=== PATIENT | female | born 1960 | race Caucasian/White ===

== ENCOUNTER 2017-07-17 22:35 | Emergency (ER) | payer OTHER, MEDICARE ==
[2017-07-17 22:43] VITALS: BP 141/73; PULSE 74; TEMP 97.7; BMI 28.2
--- NOTE | 2017-07-17 23:09 | PDOC ---
History of Present Illness - General Chief Complaint: Ear Problem Stated Complaint: EAR PROBLEM/SORE THROAT Time Seen by Provider: 07/17/17 22:47 History Source: Patient Exam Limitations: No Limitations - History of Present Illness Initial Comments: 07/17/17 23:42 57-year-old female presents to the emergency department complaining of a sore throat and right ear pressure but denies any dental pain. Patient states she is on clindamycin for the past 10 days for a dental procedure. Pain is described as 5/10 sore nonradiating intermittent discomfort. The pain is alleviated with Motrin and Tylenol and there are no exacerbating factors. Patient denies fever, chills, difficulty swallowing, facial pain, neck pain, back pains, chest pain, shortness. Timing/Duration: 24 hours Associated Symptoms: denies: nausea/vomiting Past History - Past Medical History Allergies/Adverse Reactions: Allergies Allergy/AdvReac Type Severity Reaction Status Date / Time sulfamethoxazole Allergy Severe Difficulty Verified 07/17/17 22:38 [From Bactrim] Breathing trimethoprim [From Bactrim] Allergy Severe Difficulty Verified 07/17/17 22:38 Breathing codeine [Codeine] Allergy Vomiting Verified 07/17/17 22:38 erythromycin base Allergy Verified 07/17/17 22:38 [Erythromycin Base] levofloxacin [From Levaquin] Allergy Verified 07/17/17 22:38 Penicillins Allergy Verified 07/17/17 22:38 Sulfa (Sulfonamide Allergy Verified 07/17/17 22:38 Antibiotics) [Sulfa(Sulfonamide Antibiotics)] Home Medications: Ambulatory Orders Esomeprazole Mag Trihydrate [Nexium] 40 mg PO DAILY 05/27/12 Paroxetine HCl [Paxil -] 5 mg PO DAILY 05/27/12 Tiotropium [place] [Spiriva] 1 inh IH DAILY 05/27/12 Albuterol 0.083% Nebulizer Doris [Ventolin 0.083% Nebulizer Soln -] 1 neb NEB Q4H PRN 11/11/12 Levothyroxine [Synthroid -] 88 mcg PO DAILY 11/11/12 Potassium Chloride 10 meq PO DAILY #1 capsule.er 10/17/15 Asthma: Yes COPD: Yes HTN: Yes Hypercholesterolemia: Yes Psychiatric Problems: Yes Thyroid Disease: Yes (HASHIMOTOS) Other medical history: spinal disease, sjogren's syndrome - Suicide/Smoking/Psychosocial Hx Smoking Status: Yes Smoking History: Never smoked Have you smoked in the past 12 months: No Number of Cigarettes Smoked Daily: 0 If you are a former smoker, when did you quit?: 2010 Information on smoking cessation initiated: No Hx Alcohol Use: No Drug/Substance Use Hx: No Substance Use Type: None Hx Substance Use Treatment: No Review of Systems - Review of Systems Able to Perform ROS?: Yes Comments:: 07/17/17 23:41 CONSTITUTIONAL: Absent: fever, chills, diaphoresis, generalized weakness, malaise, loss of appetite HEENT: +throat pain Absent: rhinorrhea, nasal congestion, throat swelling, difficulty swallowing, mouth swelling, ear pain, eye pain, visual Changes CARDIOVASCULAR: Absent: chest pain, loss of consciousness, palpitations, irregular heart rate, peripheral edema RESPIRATORY: Absent: cough, shortness of breath, dyspnea with exertion, orthopnea, wheezing, stridor, hemoptysis GASTROINTESTINAL: Absent: abdominal pain, abdominal distension, nausea, vomiting, diarrhea, constipation, melena, hematochezia GENITOURINARY: Absent: dysuria, frequency, urgency, hesitancy, hematuria, flank pain, genital pain MUSCULOSKELETAL: Absent: myalgia, arthralgia, joint swelling SKIN: Absent: rash, itching, pallor Is the patient limited Hungarian proficient: No *Physical Exam - Vital Signs Last Vital Signs Temp Pulse Resp BP Pulse Ox 97.7 F 74 18 141/73 99 07/17/17 22:38 07/17/17 22:38 07/17/17 22:38 07/17/17 22:38 07/17/17 22:38 - Physical Exam Comments: 07/17/17 23:42 GENERAL: Well developed, well nourished. Awake and alert. No acute distress. HEENT: Normocephalic, atraumatic. PERRLA, EOMI. No conjunctival pallor. Sclera are non- icteric. Moist mucous membranes. Oropharynx is clear. NECK: Supple. Full ROM. No JVD. Carotid pulses 2+ and symmetric, without bruits. No thyromegaly. No lymphadenopathy. CARDIOVASCULAR: Regular rate and rhythm. No murmurs, rubs, or gallops. Distal pulses are 2+ and symmetric. PULMONARY: No evidence of respiratory distress. Lungs clear to auscultation bilaterally. No wheezing, rales or rhonchi. ABDOMINAL: Soft. Non-tender. Non-distended. No rebound or guarding. No organomegaly. Normoactive bowel sounds. MUSCULOSKELETAL Normal range of motion at all joints. No bony deformities or tenderness. No CVA tenderness. EXTREMITIES: No cyanosis. No clubbing. No edema. No calf tenderness. SKIN: Warm and dry. Normal capillary refill. No rashes. No jaundice. NEUROLOGICAL: Alert, awake, appropriate. Cranial nerves 2-12 intact. No deficits to light touch and temperature in face, upper extremities and lower extremities. No motor deficits in the in face, upper extremities and lower extremities. Normoreflexic in the upper and lower extremities. Normal speech. Toes are down- going bilaterally. Gait is normal without ataxia. PSYCHIATRIC: Cooperative. Good eye contact. Appropriate mood and affect. *DC/Admit/Observation/Transfer Diagnosis at time of Disposition: Pharyngitis Qualifiers: Pharyngitis/tonsillitis etiology: unspecified etiology Qualified Code(s): J02.9 - Acute pharyngitis, unspecified - Discharge Dispostion Disposition: HOME Condition at time of disposition: Stable Admit: No - Referrals Referrals: Yogesh Mazariegos MD [Staff Physician] - - Patient Instructions Printed Discharge Instructions: DI for Viral Pharyngitis Additional Instructions: INcrease fluids Follow up with your physician and the ENT /Dr. Mazariegos listed on your discharge Tylenol or MOtrin as needed for pain Return to the ER for severe/persistent/worsening symptoms - Post Discharge Activity
== END 2017-07-17 23:51 | disposition home or self-care (01) ==
LOC: JERFT 22:35
DX: J02.9 Acute pharyngitis, unspecified (principal)
CPT/HCPCS: 87070; 87430; 99281-25

== ENCOUNTER 2019-07-24 20:22 | Observation (INO) | payer OTHER, MEDICARE ==
[2019-07-24 20:58] VITALS: BMI 28.2
--- NOTE | 2019-07-24 21:04 | PDOC ---
Attending Attestation - Resident Resident Name: Murray Gil - ED Attending Attestation I have performed the following: I have examined & evaluated the patient, The case was reviewed & discussed with the resident, I agree w/resident's findings & plan - HPI HPI: 07/24/19 21:10 see resident hpi - Physicial Exam PE: 07/24/19 21:10 agree with resident exam - Medical Decision Making 07/24/19 21:10 59-year-old female with an episode of nausea and "fogginess " This occurred while driving home from the gym Patient states she did feel well while at the gym and the symptoms started afterwards She still feels a little bit unclear Neuro exam is nonfocal Plan for presyncope evaluation and observation
--- NOTE | 2019-07-24 21:17 | PDOC ---
History of Present Illness - General Chief Complaint: Lightheaded Stated Complaint: DIZZY, FALL Time Seen by Provider: 07/24/19 21:02 History Source: Patient Exam Limitations: No Limitations - History of Present Illness Initial Comments: Melanie Barragan is a 59 yo F w a hx of significant past medical history of Asthma, hashimotos thyroiditis, HTN, DJD 'whole spine", and ovarian cyst who presents to the [facility] er [facility] with lightheadedness. She states that earlier today as she was getting out of the car she began feeling extremely lightheaded like she was going to faint. She has been persistently lightheaded and dizzy ever since. She does not feel steady on her feet and says both her arms and legs feel extremely weak. When she got out of her car she started walking to the house and felt like she was going to fall but did not actually fall down, did not hit her head, and did not experience any other trauma. She states she was being worked up for vitamin abnormalities as an outpatient with her PCP Dr. Amanda Lopez and was set to get more labs done later this week. Patient denies having experienced unilateral weakness, word slurring, facial droop, chest pain, SOB, difficulty breathing, leg sweling. Allergies: Bactrim, codeine, erythromycin, levofloxacin, penicillins PMH: hashimotos thyroiditis, HTN, Asthma, DJD 'whole spine", ovarian cyst PSH: ovarian cyst surgery Social: On disability, denies tobacco, alcohol Famhx: Dad- CAD, lymphoma. Mom- Ovarian ca PCP- amanda Lopez Neuro- Dr Ligia Calixto- [place] Past History - Past Medical History Allergies/Adverse Reactions: Allergies Allergy/AdvReac Type Severity Reaction Status Date / Time sulfamethoxazole Allergy Severe Difficulty Verified 07/24/19 20:58 [From Bactrim] Breathing trimethoprim [From Bactrim] Allergy Severe Difficulty Verified 07/24/19 20:58 Breathing codeine [Codeine] Allergy Vomiting Verified 07/24/19 20:58 erythromycin base Allergy Verified 07/24/19 20:58 [Erythromycin Base] levofloxacin [From Levaquin] Allergy Verified 07/24/19 20:58 Penicillins Allergy Verified 07/24/19 20:58 Sulfa (Sulfonamide Allergy Verified 07/24/19 20:58 Antibiotics) [Sulfa(Sulfonamide Antibiotics)] Home Medications: Ambulatory Orders Esomeprazole Mag Trihydrate [Nexium] 40 mg PO DAILY 05/27/12 Paroxetine HCl [Paxil -] 5 mg PO DAILY 05/27/12 Tiotropium [place] [Spiriva] 1 inh IH DAILY 05/27/12 Albuterol 0.083% Nebulizer Doris [Ventolin 0.083% Nebulizer Soln -] 1 neb NEB Q4H PRN 11/11/12 Levothyroxine [Synthroid -] 88 mcg PO DAILY 11/11/12 Potassium Chloride 10 meq PO DAILY #1 capsule.er 10/17/15 Asthma: Yes COPD: Yes HTN: Yes Hypercholesterolemia: Yes Psychiatric Problems: Yes Thyroid Disease: Yes (HASHIMOTOS) - Psycho Social/Smoking Cessation Hx Smoking Status: Yes Smoking History: Never smoked Have you smoked in the past 12 months: No Number of Cigarettes Smoked Daily: 0 If you are a former smoker, when did you quit?: 2010 Hx Alcohol Use: No Drug/Substance Use Hx: No Substance Use Type: None Hx Substance Use Treatment: No Review of Systems - Review of Systems Able to Perform ROS?: Yes Comments:: CONSTITUTIONAL: Present: Fatigue Absent: fever, no chills EYES: Absent: visual changes ENT: Absent: ear pain, no sore throat CARDIOVASCULAR: Absent: chest pain, no palpitations RESPIRATORY: Absent: cough, no SOB GI: Absent: abdominal pain, no nausea, no vomiting, no constipation, no diarrhea GENITOURINARY: Absent: dysuria, no frequency, no hematuria MUSKULOSKELETAL: Absent: back pain, no arthralgia, no myalgia SKIN: Absent: rash NEURO: Absent: headache *Physical Exam - Vital Signs Last Vital Signs Temp Pulse Resp BP Pulse Ox 97.9 F 70 16 140/74 99 07/24/19 20:56 07/24/19 20:56 07/24/19 20:56 07/24/19 20:56 07/24/19 20:56 - Physical Exam GENERAL: Slow. Well-appearing, well-nourished. No apparent distress. HEENT: Normocephalic, atraumatic. PERRL, EOM intact. CARDIOVASCULAR: Normal S1, S2. Regular rate and rhythm. PULMONARY: No evidence of respiratory distress. Lungs clear to auscultation bilaterally. No wheezing, rales or rhonchi. ABDOMEN: Soft, non-distended, non-tender. EXTREMITIES: Normal ROM in all four extremities. No gross deformities. SKIN: Warm, dry. No rash NEUROLOGICAL: Alert, awake, appropriate. Cranial nerves 2-12 intact. No deficits to light touch in face, upper extremities and lower extremities. No motor deficits in the in face, upper extremities and lower extremities. Normal speech. Gait is normal without ataxia. Heart Score/ECG Review - ECG Intrepretation Rhythm: Regular Rhythm - [place]: Normal - P and OK Prominent R with upright T in V1 (true posterior IN): No Delta Wave(s) Present: No WPW: No - QRS Poor R Wave Progression: No Q Wave Present: No Comment:: 94 ms - ST and T Early Repolarization: No Non Specific ST-T Wave changes: No Flattened T Waves: No Prolonged Q-T Interval: No Comment:: QTc 477 - ECG Impressions Normal ECG: Yes Non-specific ST Elevation: No Ischemic Changes: No Torsades naatly Pointes: No WPW: No ED Treatment Course - LABORATORY CBC & Chemistry Diagram: 07/24/19 22:20 07/24/19 22:20 Medical Decision Making - Medical Decision Making Melanie Barragan is a 59 yo F w a hx of significant past medical history of Asthma, hashimotos thyroiditis, HTN, DJD 'whole spine", and ovarian cyst who presents to the [facility] er [facility] with lightheadedness. She states that earlier today as she was getting out of the car she began feeling extremely lightheaded like she was going to faint. She has been persistently lightheaded and dizzy ever since. She does not feel steady on her feet and says both her arms and legs feel extremely weak. When she got out of her car she started walking to the house and felt like she was going to fall but did not actually fall down, did not hit her head, and did not experience any other trauma. She states she was being worked up for vitamin abnormalities as an outpatient with her PCP Dr. Amanda Lopez and was set to get more labs done later this week. Patient denies having experienced unilateral weakness, word slurring, facial droop, chest pain, SOB, difficulty breathing, leg sweling. Vital Signs Temp Pulse Resp BP Pulse Ox 97.9 F 70 16 140/74 99 07/24/19 20:56 07/24/19 20:56 07/24/19 20:56 07/24/19 20:56 07/24/19 20:56 DDx IBNLT: ACS/IN, Arrhythmia, CVA/TIA, electrolyte/metabolc disturbance, vitamin deficiency, anemia, heart failure Plan: Labs, EKG, CXR, Head CT, IV hydration, admit for lightheadedness EKG: NS - see EKG section, no signs of arrhythmia Labs: Mildly decreased potassium - will replete orally CXR: Unremarkable Head CT: EXAM: HEAD CT WITHOUT CONTRAST HISTORY: Headache. Altered mental status COMPARISON: None. FINDINGS: There is no intra or extra-axial hemorrhage. No mass lesion or midline shift. Normal carey white matter differentiation. There is mild cortical atrophy with mild prominence of the frontal extra-axial CSF spaces secondary to volume loss The ventricles are not enlarged and are symmetric and midline in position. The calvarium is intact The visualized paranasal sinuses and mastoid air cells are clear. Disposition: Tele obs for lightheadedness Discharge - Discharge Information Problems reviewed: Yes Clinical Impression/Diagnosis: Lightheadedness Condition: Stable - Admission Yes - Follow up/Referral - Patient Discharge Instructions - Post Discharge Activity
[2019-07-24] MEDS ORDERED: SODIUM CHLORIDE 1,000 ML IV ONE (21:30)
[2019-07-24 22:31] LABS: BASO % 0.6 % (0-2.0); EOS % 0.3 % (0-4.5); HEMATOCRIT 37.2 % (32.4-45.2); HEMOGLOBIN 12.4 GM/dL (10.7-15.3); LYMPH % 25.5 % (8-40); MCH 27.1 pg (25.7-33.7); MCHC 33.3 g/dl (32.0-36.0); MEAN CELL VOLUME 81.4 fl (80-96); MEAN PLT VOLUME 8.6 fl (7.5-11.1); MONO % 4.5 % (3.8-10.2); NEUT % 69.1 % (42.8-82.8); PLATELET COUNT 203 K/MM3 (134-434); RBC 4.57 M/mm3 (3.60-5.2); RDW 14.7 % (11.6-15.6); WHITE BLOOD COUNT 7.6 K/mm3 (4.0-10.0)
[2019-07-24 22:58] LABS: ALBUMIN 3.8 g/dl (3.4-5.0); BILIRUBIN,TOTAL 0.4 mg/dL (0.2-1); BLOOD UREA NITROGEN 17.5 mg/dL (7-18); CALCIUM 9.6 mg/dL (8.5-10.1); CREATININE 0.6 mg/dL (0.55-1.3); POTASSIUM 3.3 mmol/L (3.5-5.1); TOT PROT 7.3 g/dl (6.4-8.2)
[2019-07-24 23:22] LABS: N-TERMINAL BNP 32.8 pg/ml (5-125); PHOSPHOROUS 3.5 mg/dL (2.5-4.9)
[2019-07-24 23:55] LABS: INR 0.93 (0.83-1.09)
[2019-07-24 23:58] LABS: ACTIVATED PTT 26.1 SECONDS (25.2-36.5)
[2019-07-25] MEDS ORDERED: POTASSIUM CHLORIDE ORAL LIQUID 20 MEQ/15 ML PO ONE
[2019-07-25] MEDS ORDERED: POTASSIUM CHLORIDE ORAL LIQUID 20 MEQ/15 ML ONE (02:01)
--- NOTE | 2019-07-25 02:08 | PN ---
Teaching Attending Note Name of Resident: Reva Padilla ATTENDING PHYSICIAN STATEMENT I saw and evaluated the patient. I reviewed the resident's note and discussed the case with the resident. I agree with the resident's findings and plan as documented. SUBJECTIVE: OBJECTIVE: HEENT: No Jaundice, eye redness or discharge, PERRLA, EOMI. Normocephalic, atraumatic. External ears are normal and hearing is grossly intact. No nasal discharge. Neck: Supple, nontender. No palpable adenopathy or thyromegaly. No JVD Chest: Good effort. Clear to auscultation and percussion. Heart: Regular. No S3, rub or murmur Abdomen: Not distended, soft, nontender and no HSM. No rebound or guarding. Normal bowel sounds. Ext: Peripheral pulses intact. No leg edema. Skin: Warm and dry. No petechiae, rash or ecchymosis. Neuro: Alert. Oriented x3. CN 2-12 grossly intact. Sensation grossly intact in all four extremities and DTR are symmetric. Psych: Appropriate mood and affect. Good insight. Will continue comprehensive care for all of patients comorbid conditions. Hypoalbuminemia - Possibly due to combined effects of malnutrition and inflammation associated with comorbid chronic conditions. Will ensure adequate dietary protein intake and also consult professor of literacy. DM For now, we will hold the home diabetes drugs and implement sliding scale insulin regimen. Provide comprehensive diabetes care with patient teaching and counseling about the importance of adherence to prescribed diabetes regimen, euglycemia, eye care and foot care. Tobacco Use Counseled on risks associated with tobacco use. We will provide patient all the necessary assistance to facilitate smoking cessation and prescribe Nicotine patch. CKD/BERTRAND - Will consult nephrology and avoid nephrotoxic agents such as NSAIDS, aminoglycosides, contrast dyes and certain Alternative medicine products. Anemia -Do basic anemia work up including serial stool guaiacs, reticulocyte count and iron studies. Would benefit from Procrit therapy once iron replete. Polypharmacy - Will liaise with patient's PCP to discontinue medications that are not absolutely essential. Obesity Counseled on the risks associated with obesity. Will provide patient all the necessary assistance, counseling and positive reinforcement to facilitate weight loss. Consult professor of literacy. Alcohol abuse - Implement [facility] alcohol withdrawal protocol and do neurochecks. Implement seizure, fall and aspiration precautions. Treat with thiamine and folic acid and monitor electrolytes (Ca,Mg,K,P). Counseled patient about abstaining from alcohol. Will consult urban redevelopment specialist and refer to alcohol detox upon discharge. Hypertension - Restart suitable outpatient antihypertensive drugs when clinically appropriate. Revise regimen to ensure [id number] excellent BP control and career placement services counselor patient on the injurious effects of uncontrolled hypertension. Nonpharmacologic measures to control hypertension like weight loss , salt restriction and exercise discussed. Importance of adherence to treatment regimen and attainment of normotension emphasized. DVT prophylaxis - Lovenox 40 mg SQ q 24 hours. Heparin 5000u sq tid. Advance directives - Full code ASSESSMENT AND PLAN:
--- NOTE | 2019-07-25 08:20 | HP ---
CHIEF COMPLAINT: PCP: HISTORY OF PRESENT ILLNESS: ER course was notable for: (1) (2) (3) Recent Travel: PAST MEDICAL HISTORY: PAST SURGICAL HISTORY: Social History: Smoking: Alcohol: Drugs: Allergies sulfamethoxazole [From Bactrim] Allergy (Severe, Verified 07/24/19 20:58) Difficulty Breathing trimethoprim [From Bactrim] Allergy (Severe, Verified 07/24/19 20:58) Difficulty Breathing codeine [Codeine] Allergy (Verified 07/24/19 20:58) Vomiting erythromycin base [Erythromycin Base] Allergy (Verified 07/24/19 20:58) levofloxacin [From Levaquin] Allergy (Verified 07/24/19 20:58) REDNESS TO ARM Penicillins Allergy (Verified 07/24/19 20:58) Sulfa (Sulfonamide Antibiotics) [Sulfa(Sulfonamide Antibiotics)] Allergy ( Verified 07/24/19 20:58) REDNESS TO ARM HOME MEDICATIONS: Home Medications Medication Instructions Recorded Esomeprazole Mag Trihydrate 40 mg PO DAILY 05/27/12 [Nexium] Paroxetine HCl [Paxil -] 5 mg PO DAILY 05/27/12 Tiotropium [place] [Spiriva] 1 inh IH DAILY 05/27/12 Albuterol 0.083% Nebulizer Doris 1 neb NEB Q4H PRN 11/11/12 [Ventolin 0.083% Nebulizer Soln -] Levothyroxine [Synthroid -] 88 mcg PO DAILY 11/11/12 Potassium Chloride 10 meq PO DAILY #1 capsule.er 10/17/15 REVIEW OF SYSTEMS CONSTITUTIONAL: Absent: fever, chills, diaphoresis, generalized weakness, malaise, loss of appetite, weight change HEENT: Absent: rhinorrhea, nasal congestion, throat pain, throat swelling, difficulty swallowing, mouth swelling, ear pain, eye pain, visual changes CARDIOVASCULAR: Absent: chest pain, syncope, palpitations, irregular heart rate, lightheadedness , peripheral edema RESPIRATORY: Absent: cough, shortness of breath, dyspnea with exertion, orthopnea, wheezing, stridor, hemoptysis GASTROINTESTINAL: Absent: abdominal pain, abdominal distension, nausea, vomiting, diarrhea, constipation, melena, hematochezia GENITOURINARY: Absent: dysuria, frequency, urgency, hesitancy, hematuria, flank pain, genital pain MUSCULOSKELETAL: Absent: myalgia, arthralgia, joint swelling, back pain, neck pain SKIN: Absent: rash, itching, pallor HEMATOLOGIC/IMMUNOLOGIC: Absent: easy bleeding, easy bruising, lymphadenopathy, frequent infections ENDOCRINE: Absent: unexplained weight gain, unexplained weight loss, heat intolerance, cold intolerance NEUROLOGIC: Absent: headache, focal weakness or paresthesias, dizziness, unsteady gait, seizure, mental status changes, bladder or bowel incontinence PSYCHIATRIC: Absent: anxiety, depression, suicidal or homicidal ideation, hallucinations. PHYSICAL EXAMINATION Vital Signs - 24 hr 07/24/19 20:56 Temperature 97.9 F Pulse Rate 70 Respiratory 16 Rate Blood Pressure 140/74 O2 Sat by Pulse 99 Oximetry (%) GENERAL: Awake, alert, and fully oriented, in no acute distress. HEAD: Normal with no signs of trauma. EYES: Pupils equal, round and reactive to light, extraocular movements intact, sclera anicteric, conjunctiva clear. No lid lag. EARS, NOSE, THROAT: Ears normal, nares patent, oropharynx clear without exudates. Moist mucous membranes. NECK: Normal range of motion, supple without lymphadenopathy, JVD, or masses. LUNGS: Breath sounds equal, clear to auscultation bilaterally. No wheezes, and no crackles. No accessory muscle use. HEART: Regular rate and rhythm, normal S1 and S2 without murmur, rub or gallop. ABDOMEN: Soft, nontender, not distended, normoactive bowel sounds, no guarding, no rebound, no masses. No hepatomegaly or splenomegaly. MUSCULOSKELETAL: Normal range of motion at all joints. No bony deformities or tenderness. No CVA tenderness. UPPER EXTREMITIES: 2+ pulses, warm, well-perfused. No cyanosis. No clubbing. No peripheral edema. LOWER EXTREMITIES: 2+ pulses, warm, well-perfused. No calf tenderness. No peripheral edema. NEUROLOGICAL: Cranial nerves II-XII intact. Normal speech. Normal gait. PSYCHIATRIC: Cooperative. Good eye contact. Appropriate mood and affect. SKIN: Warm, dry, normal turgor, no rashes or lesions noted, normal capillary refill. Laboratory Results - last 24 hr 07/24/19 07/24/19 07/24/19 22:20 22:20 22:20 WBC 7.6 RBC 4.57 Hgb 12.4 Hct 37.2 MCV 81.4 MCH 27.1 MCHC 33.3 RDW 14.7 Plt Count 203 MPV 8.6 Absolute Neuts (auto) 5.3 Neutrophils % 69.1 D Lymphocytes % 25.5 D Monocytes % 4.5 Eosinophils % 0.3 D Basophils % 0.6 Nucleated RBC % 0 PT with INR INR PTT (Actin FS) Sodium 141 Potassium 3.3 L Chloride 102 Carbon Dioxide 30 Anion Gap 8 BUN 17.5 Creatinine 0.6 Est GFR (CKD-EPI)AfAm 115.63 Est GFR (CKD-EPI)NonAf 99.77 Random Glucose 105 Calcium 9.6 Phosphorus Magnesium Total Bilirubin 0.4 AST 16 ALT 26 Alkaline Phosphatase 97 Creatine Kinase 176 Creatine Kinase Index 1.1 CK-MB (CK-2) 2.1 Troponin I < 0.02 B-Natriuretic Peptide Total Protein 7.3 Albumin 3.8 Vitamin B12 TSH Blood Type Antibody Screen 07/24/19 07/24/19 07/24/19 22:20 22:20 22:45 WBC RBC Hgb Hct MCV MCH MCHC RDW Plt Count MPV Absolute Neuts (auto) Neutrophils % Lymphocytes % Monocytes % Eosinophils % Basophils % Nucleated RBC % PT with INR INR PTT (Actin FS) Sodium Potassium Chloride Carbon Dioxide Anion Gap BUN Creatinine Est GFR (CKD-EPI)AfAm Est GFR (CKD-EPI)NonAf Random Glucose Calcium Phosphorus 3.5 Magnesium 2.0 Total Bilirubin AST ALT Alkaline Phosphatase Creatine Kinase Creatine Kinase Index CK-MB (CK-2) Troponin I B-Natriuretic Peptide 32.8 Total Protein Albumin Vitamin B12 1312 H TSH 0.99 Blood Type O POSITIVE Antibody Screen Negative 07/24/19 07/25/19 23:35 06:35 WBC RBC Hgb Hct MCV MCH MCHC RDW Plt Count MPV Absolute Neuts (auto) Neutrophils % Lymphocytes % Monocytes % Eosinophils % Basophils % Nucleated RBC % PT with INR 11.00 INR 0.93 PTT (Actin FS) 26.1 Sodium Potassium Chloride Carbon Dioxide Anion Gap BUN Creatinine Est GFR (CKD-EPI)AfAm Est GFR (CKD-EPI)NonAf Random Glucose Calcium Phosphorus Magnesium Total Bilirubin AST ALT Alkaline Phosphatase Creatine Kinase Creatine Kinase Index CK-MB (CK-2) Troponin I B-Natriuretic Peptide Total Protein Albumin Vitamin B12 TSH Blood Type O POSITIVE Antibody Screen ASSESSMENT/PLAN: ATTENDING PHYSICIAN STATEMENT I saw and evaluated the patient. I reviewed the resident's note and discussed the case with the resident. I agree with the resident's findings and plan as documented. SUBJECTIVE: OBJECTIVE: ASSESSMENT AND PLAN:
--- NOTE | 2019-07-25 09:21 | HP ---
<Emigdio Waldron - Last Filed: 07/25/19 12:54> CHIEF COMPLAINT: Lightheadedness PCP: Dr [facility] HISTORY OF PRESENT ILLNESS: Pt with a significant past medical history of asthma, Palomo's thyroiditis , HTN, DJD who presented to [facility] earlier this morning for lightheadedness and generalized weakness. Pt endorses she was driving around 5:30 pm yesterday afternoon when she suddenly became weak and lightheadedness. Pt states she had to side puller to the side of the road as she couldn't drive any further. Also states she was experiencing some blurry vision and numbness/tingling in her hands and lower extremities. Pt has never experienced these symptoms before in the past. Denies any recent illnesses. Furthermore, pt also states she experienced chills. Allergies: Bactrim, codeine, erythromycin, levofloxacin, penicillins PMH: hashimotos thyroiditis, HTN, Asthma, DJD 'whole spine", ovarian cyst PSH: ovarian cyst and Salpingectomy Social: On disability, denies tobacco, alcohol Famhx: Dad- CAD, lymphoma. Mom- Ovarian ca PCP- guilherme Lopez Neuro- Dr Strong Rheum: Dr Bhavani Caldera [facility] ER course was notable for: (1) Head CT- Neg (2) (3) Allergies sulfamethoxazole [From Bactrim] Allergy (Severe, Verified 07/24/19 20:58) Difficulty Breathing trimethoprim [From Bactrim] Allergy (Severe, Verified 07/24/19 20:58) Difficulty Breathing codeine [Codeine] Allergy (Verified 07/24/19 20:58) Vomiting erythromycin base [Erythromycin Base] Allergy (Verified 07/24/19 20:58) levofloxacin [From Levaquin] Allergy (Verified 07/24/19 20:58) REDNESS TO ARM Penicillins Allergy (Verified 07/24/19 20:58) Sulfa (Sulfonamide Antibiotics) [Sulfa(Sulfonamide Antibiotics)] Allergy ( Verified 07/24/19 20:58) REDNESS TO ARM HOME MEDICATIONS: Home Medications Medication Instructions Recorded Esomeprazole Mag Trihydrate 40 mg PO DAILY 05/27/12 [Nexium] Paroxetine HCl [Paxil -] 5 mg PO DAILY 05/27/12 Tiotropium [place] [Spiriva] 1 inh IH DAILY 05/27/12 Albuterol 0.083% Nebulizer Doris 1 neb NEB Q4H PRN 11/11/12 [Ventolin 0.083% Nebulizer Soln -] Levothyroxine [Synthroid -] 88 mcg PO DAILY 11/11/12 Potassium Chloride 10 meq PO DAILY #1 capsule.er 10/17/15 REVIEW OF SYSTEMS CONSTITUTIONAL: PRESENT generalized weakness HEENT: Absent: rhinorrhea, nasal congestion, throat pain, throat swelling, difficulty swallowing, mouth swelling, ear pain, eye pain, visual changes CARDIOVASCULAR: Absent: chest pain, syncope, palpitations, irregular heart rate, lightheadedness , peripheral edema RESPIRATORY: Absent: cough, shortness of breath, dyspnea with exertion, orthopnea, wheezing, stridor, hemoptysis GASTROINTESTINAL: Absent: abdominal pain, abdominal distension, nausea, vomiting, diarrhea, constipation, melena, hematochezia GENITOURINARY: Absent: dysuria, frequency, urgency, hesitancy, hematuria, flank pain, genital pain MUSCULOSKELETAL: Absent: myalgia, arthralgia, joint swelling, back pain, neck pain SKIN: Absent: rash, itching, pallor HEMATOLOGIC/IMMUNOLOGIC: Absent: easy bleeding, easy bruising, lymphadenopathy, frequent infections ENDOCRINE: Absent: unexplained weight gain, unexplained weight loss, heat intolerance, cold intolerance NEUROLOGIC: Absent: headache, focal weakness or paresthesias, dizziness, unsteady gait, seizure, mental status changes, bladder or bowel incontinence PSYCHIATRIC: Absent: anxiety, depression, suicidal or homicidal ideation, hallucinations. PHYSICAL EXAMINATION Vital Signs - 24 hr 07/24/19 20:56 Temperature 97.9 F Pulse Rate 70 Respiratory 16 Rate Blood Pressure 140/74 O2 Sat by Pulse 99 Oximetry (%) GENERAL: NAD HEAD: Normal with no signs of trauma. EYES: EOMI Sclera Clear EARS, NOSE, THROAT: MMM NECK: Supple LUNGS: CTA b/l . HEART: RRR S1S2 ABDOMEN: Soft, NDNT MUSCULOSKELETAL: FROM . LOWER EXTREMITIES: No CCE NEUROLOGICAL: Cranial nerves II-XII intact. SKIN: Warm, dry, normal turgor, no rashes or lesions noted, normal capillary refill. Laboratory Results - last 24 hr 07/24/19 07/24/19 07/24/19 22:20 22:20 22:20 WBC 7.6 RBC 4.57 Hgb 12.4 Hct 37.2 MCV 81.4 MCH 27.1 MCHC 33.3 RDW 14.7 Plt Count 203 MPV 8.6 Absolute Neuts (auto) 5.3 Neutrophils % 69.1 D Lymphocytes % 25.5 D Monocytes % 4.5 Eosinophils % 0.3 D Basophils % 0.6 Nucleated RBC % 0 PT with INR INR PTT (Actin FS) Sodium 141 Potassium 3.3 L Chloride 102 Carbon Dioxide 30 Anion Gap 8 BUN 17.5 Creatinine 0.6 Est GFR (CKD-EPI)AfAm 115.63 Est GFR (CKD-EPI)NonAf 99.77 Random Glucose 105 Calcium 9.6 Phosphorus Magnesium Total Bilirubin 0.4 AST 16 ALT 26 Alkaline Phosphatase 97 Creatine Kinase 176 Creatine Kinase Index 1.1 CK-MB (CK-2) 2.1 Troponin I < 0.02 B-Natriuretic Peptide Total Protein 7.3 Albumin 3.8 Vitamin B12 TSH Blood Type Antibody Screen 07/24/19 07/24/19 07/24/19 22:20 22:20 22:45 WBC RBC Hgb Hct MCV MCH MCHC RDW Plt Count MPV Absolute Neuts (auto) Neutrophils % Lymphocytes % Monocytes % Eosinophils % Basophils % Nucleated RBC % PT with INR INR PTT (Actin FS) Sodium Potassium Chloride Carbon Dioxide Anion Gap BUN Creatinine Est GFR (CKD-EPI)AfAm Est GFR (CKD-EPI)NonAf Random Glucose Calcium Phosphorus 3.5 Magnesium 2.0 Total Bilirubin AST ALT Alkaline Phosphatase Creatine Kinase Creatine Kinase Index CK-MB (CK-2) Troponin I B-Natriuretic Peptide 32.8 Total Protein Albumin Vitamin B12 1312 H TSH 0.99 Blood Type O POSITIVE Antibody Screen Negative 07/24/19 07/25/19 23:35 06:35 WBC RBC Hgb Hct MCV MCH MCHC RDW Plt Count MPV Absolute Neuts (auto) Neutrophils % Lymphocytes % Monocytes % Eosinophils % Basophils % Nucleated RBC % PT with INR 11.00 INR 0.93 PTT (Actin FS) 26.1 Sodium Potassium Chloride Carbon Dioxide Anion Gap BUN Creatinine Est GFR (CKD-EPI)AfAm Est GFR (CKD-EPI)NonAf Random Glucose Calcium Phosphorus Magnesium Total Bilirubin AST ALT Alkaline Phosphatase Creatine Kinase Creatine Kinase Index CK-MB (CK-2) Troponin I B-Natriuretic Peptide Total Protein Albumin Vitamin B12 TSH Blood Type O POSITIVE Antibody Screen ASSESSMENT/PLAN: #lightheadedness/Near syncope 2/2 unknown etiology -Echocardiogram to assess for any wall motion abnormalities -Head CT Neg Tele monitoring Neuro Consult. Appreciate recs Brain MRI per neuro recs #HTN -Resume HCTZ #Palomo's thyroiditis -Synthroid 88 mcg #Asthma -Continue Singulair #FEN -No standing Fluids -Monitor Electrolytes -Sodium Controlled Diet #DVT ppx: -HEP SQ TID #Dispo -Tele Obs ATTENDING PHYSICIAN STATEMENT I saw and evaluated the patient. I reviewed the resident's note and discussed the case with the resident. I agree with the resident's findings and plan as documented. SUBJECTIVE: OBJECTIVE: ASSESSMENT AND PLAN: <Wesly Garcia - Last Filed: 07/26/19 12:23> CHIEF COMPLAINT: PCP: HISTORY OF PRESENT ILLNESS: ER course was notable for: (1) (2) (3) Recent Travel: PAST MEDICAL HISTORY: PAST SURGICAL HISTORY: Social History: Smoking: Alcohol: Drugs: Allergies sulfamethoxazole [From Bactrim] Allergy (Severe, Verified 07/24/19 20:58) Difficulty Breathing trimethoprim [From Bactrim] Allergy (Severe, Verified 07/24/19 20:58) Difficulty Breathing codeine [Codeine] Allergy (Verified 07/24/19 20:58) Vomiting erythromycin base [Erythromycin Base] Allergy (Verified 07/24/19 20:58) levofloxacin [From Levaquin] Allergy (Verified 07/24/19 20:58) REDNESS TO ARM Penicillins Allergy (Verified 07/24/19 20:58) Sulfa (Sulfonamide Antibiotics) [Sulfa(Sulfonamide Antibiotics)] Allergy ( Verified 07/24/19 20:58) REDNESS TO ARM HOME MEDICATIONS: Home Medications Medication Instructions Recorded Esomeprazole Mag Trihydrate 40 mg PO DAILY 05/27/12 [Nexium] Paroxetine HCl [Paxil -] 5 mg PO DAILY 05/27/12 Tiotropium [place] [Spiriva] 1 inh IH DAILY 05/27/12 Albuterol 0.083% Nebulizer Doris 1 neb NEB Q4H PRN 11/11/12 [Ventolin 0.083% Nebulizer Soln -] Levothyroxine [Synthroid -] 88 mcg PO DAILY 11/11/12 Potassium Chloride 10 meq PO DAILY #1 capsule.er 10/17/15 Famotidine [Pepcid] 20 mg PO BID 07/25/19 Hydrochlorothiazide [Hctz -] 25 mg PO DAILY 07/25/19 Montelukast Sodium [Singulair] 10 mg PO DAILY 07/25/19 Simvastatin [Zocor] 20 mg PO DAILY 07/25/19 REVIEW OF SYSTEMS CONSTITUTIONAL: Absent: fever, chills, diaphoresis, generalized weakness, malaise, loss of appetite, weight change HEENT: Absent: rhinorrhea, nasal congestion, throat pain, throat swelling, difficulty swallowing, mouth swelling, ear pain, eye pain, visual changes CARDIOVASCULAR: Absent: chest pain, syncope, palpitations, irregular heart rate, lightheadedness , peripheral edema RESPIRATORY: Absent: cough, shortness of breath, dyspnea with exertion, orthopnea, wheezing, stridor, hemoptysis GASTROINTESTINAL: Absent: abdominal pain, abdominal distension, nausea, vomiting, diarrhea, constipation, melena, hematochezia GENITOURINARY: Absent: dysuria, frequency, urgency, hesitancy, hematuria, flank pain, genital pain MUSCULOSKELETAL: Absent: myalgia, arthralgia, joint swelling, back pain, neck pain SKIN: Absent: rash, itching, pallor HEMATOLOGIC/IMMUNOLOGIC: Absent: easy bleeding, easy bruising, lymphadenopathy, frequent infections ENDOCRINE: Absent: unexplained weight gain, unexplained weight loss, heat intolerance, cold intolerance NEUROLOGIC: Absent: headache, focal weakness or paresthesias, dizziness, unsteady gait, seizure, mental status changes, bladder or bowel incontinence PSYCHIATRIC: Absent: anxiety, depression, suicidal or homicidal ideation, hallucinations. PHYSICAL EXAMINATION Vital Signs - 24 hr 07/25/19 07/25/19 07/25/19 15:00 16:38 18:49 Temperature 98.3 F 98 F Pulse Rate 74 78 Respiratory 20 18 Rate Blood Pressure 118/50 L 119/76 O2 Sat by Pulse 99 Oximetry (%) 07/25/19 07/26/19 07/26/19 21:00 00:00 01:26 Temperature 97.7 F 97.7 F Pulse Rate 75 71 Respiratory 18 18 Rate Blood Pressure 132/71 110/55 L O2 Sat by Pulse 99 Oximetry (%) 07/26/19 07/26/19 07/26/19 05:00 08:00 09:00 Temperature 97.7 F 98.2 F Pulse Rate 55 L 75 Respiratory 19 19 18 Rate Blood Pressure 124/56 L 135/79 O2 Sat by Pulse 99 Oximetry (%) GENERAL: Awake, alert, and fully oriented, in no acute distress. HEAD: Normal with no signs of trauma. EYES: Pupils equal, round and reactive to light, extraocular movements intact, sclera anicteric, conjunctiva clear. No lid lag. EARS, NOSE, THROAT: Ears normal, nares patent, oropharynx clear without exudates. Moist mucous membranes. NECK: Normal range of motion, supple without lymphadenopathy, JVD, or masses. LUNGS: Breath sounds equal, clear to auscultation bilaterally. No wheezes, and no crackles. No accessory muscle use. HEART: Regular rate and rhythm, normal S1 and S2 without murmur, rub or gallop. ABDOMEN: Soft, nontender, not distended, normoactive bowel sounds, no guarding, no rebound, no masses. No hepatomegaly or splenomegaly. MUSCULOSKELETAL: Normal range of motion at all joints. No bony deformities or tenderness. No CVA tenderness. UPPER EXTREMITIES: 2+ pulses, warm, well-perfused. No cyanosis. No clubbing. No peripheral edema. LOWER EXTREMITIES: 2+ pulses, warm, well-perfused. No calf tenderness. No peripheral edema. NEUROLOGICAL: Cranial nerves II-XII intact. Normal speech. Normal gait. PSYCHIATRIC: Cooperative. Good eye contact. Appropriate mood and affect. SKIN: Warm, dry, normal turgor, no rashes or lesions noted, normal capillary refill. Laboratory Results - last 24 hr 07/26/19 07/26/19 07/26/19 06:32 06:32 06:32 WBC 5.7 RBC 4.37 Hgb 11.9 Hct 35.7 MCV 81.6 MCH 27.2 MCHC 33.3 RDW 14.6 Plt Count 189 MPV 8.6 Absolute Neuts (auto) 2.6 Neutrophils % 46.0 D Lymphocytes % 46.6 H D Monocytes % 5.3 Eosinophils % 1.8 D Basophils % 0.3 Nucleated RBC % 0 PT with INR 12.30 INR 1.04 PTT (Actin FS) 35.3 Sodium 142 Potassium 3.7 Chloride 108 H Carbon Dioxide 29 Anion Gap 5 L BUN 19.1 H Creatinine 0.7 Est GFR (CKD-EPI)AfAm 109.91 Est GFR (CKD-EPI)NonAf 94.84 Random Glucose 97 Calcium 9.0 Phosphorus 3.4 Magnesium 2.1 Total Bilirubin 0.4 AST 18 ALT 30 Alkaline Phosphatase 85 Total Protein 6.6 Albumin 3.6 ASSESSMENT/PLAN: ATTENDING PHYSICIAN STATEMENT I saw and evaluated the patient. I reviewed the resident's note and discussed the case with the resident. I agree with the resident's findings and plan as documented. SUBJECTIVE: OBJECTIVE: ASSESSMENT AND PLAN:
[2019-07-25] MEDS ORDERED: TIOTROPIUM BROMIDE 2.5 MCG (SPIRIVA) RESPIMAT INHALER IH SCH (10:00)
--- NOTE | 2019-07-25 10:43 | EKG ---
Test Reason : Blood Pressure : / mmHG Vent. Rate : 067 BPM Atrial Rate : 067 BPM P-R Int : 164 ms QRS Dur : 094 ms QT Int : 452 ms P-R-T Axes : 056 019 052 degrees QTc Int : 477 ms NORMAL SINUS RHYTHM NORMAL ECG WHEN COMPARED WITH ECG OF 16-OCT-2015 16:36, NO SIGNIFICANT CHANGE WAS FOUND Confirmed by PENELOPE STANLEY MD ([id number]) on 07/25/2019 10:42:43 AM Referred By: Confirmed By:PENELOPE STANLEY MD
--- NOTE | 2019-07-25 11:57 | ECHO ---
Name: SAIMA HUGHES Exam:Adult Echocardiogram Study Date: 07/25/2019 09:38 AM Age: 59 yrs Reason For Study: palpitations, syncope Height: 66 in Weight: 175 lb BSA: 1.9 m2 MMode/2D Measurements & Calculations IVSd: 1.2 cm Ao root diam: 2.8 cm LVIDd: 3.4 cm LA dimension: 3.0 cm LVIDs: 2.4 cm ACS: 1.8 cm LVPWd: 0.92 cm EDV(Teich): 47.6 ml LVOT diam: 1.9 cm ESV(Teich): 19.9 ml RV S Brian: 13.4 cm/sec Doppler Measurements & Calculations MV E max brian: 86.9 cm/sec Ao V2 max: 130.9 cm/sec MV A max brian: 78.0 cm/sec Ao max P.9 mmHg MV E/A: 1.1 Ao V2 mean: 85.2 cm/sec MV dec time: 0.18 sec Ao mean P.2 mmHg Ao V2 VTI: 27.3 cm SUSI(I,D): 2.3 cm2 SUSI(V,D): 1.9 cm2 LV V1 max P.3 mmHg MR max brian: 311.4 cm/sec LV V1 mean P.8 mmHg MR max P.8 mmHg LV V1 max: 90.3 cm/sec LV V1 mean: 61.8 cm/sec LV V1 VTI: 22.2 cm SV(LVOT): 61.5 ml TR max brian: 240.5 cm/sec TR max P.3 mmHg PA V2 max: 54.8 cm/sec Med Peak E' Brian: 10.6 cm/sec PA max P.2 mmHg Med E/e': 8.2 Lat Peak E' Brian: 8.1 cm/sec Lat E/e': 10.7 Procedure A complete two-dimensional transthoracic echocardiogram was performed (2D, M-mode, Doppler and color flow Doppler). Left Ventricle The left ventricular size, thickness and function are normal. The left ventricular ejection fraction is normal. Ejection Fraction = 55-60%. The left ventricular wall motion is normal. Right Ventricle The right ventricle is normal in size and function. Atria Normal left and right atrial size and function. Mitral Valve There is no mitral regurgitation noted. Tricuspid Valve There is trace tricuspid regurgitation. There was insufficient TR detected to calculate RV systolic p ressure. Aortic Valve The aortic valve is trileaflet. No hemodynamically significant valvular aortic stenosis. No aortic regurgitation is present. Pulmonic Valve There is no pulmonic valvular regurgitation. Great Vessels The aortic root is normal size. Pericardium/Pleura There is no pericardial effusion. Interpretation Summary The left ventricular size, thickness and function are normal The right ventricle is normal in size and function. There is trace tricuspid regurgitation. MD Mikel Borja 07/25/2019 11:57 AM
[2019-07-25] MEDS ORDERED: PANTOPRAZOLE 40 MG TABLET (FP) ONE (12:59)
[2019-07-25] MEDS ORDERED: HYDROCHLOROTHIAZIDE 25 MG TABLET (FP) ONE (12:59)
[2019-07-25] MEDS: HYDROCHLOROTHIAZIDE 25 MG TABLET (FP) PO SCH (13:00)
[2019-07-25] MEDS: PANTOPRAZOLE 40 MG TABLET (FP) PO SCH (13:00)
[2019-07-25] MEDS ORDERED: HEPARIN NA (PORCINE) 5,000 UNITS/ML 1ML VIAL ONE (15:38)
[2019-07-25] MEDS: HEPARIN NA (PORCINE) 5,000 UNITS/ML 1ML VIAL SQ SCH ×2 (16:23→21:41)
[2019-07-25] MEDS ORDERED: ATORVASTATIN CA 10 MG TABLET (FP) PO SCH (22:00)
[2019-07-25] MEDS: ACETAMINOPHEN 325 MG TABLET (FP) PO PRN (22:59)
[2019-07-26] MEDS: HEPARIN NA (PORCINE) 5,000 UNITS/ML 1ML VIAL SQ SCH (06:15)
[2019-07-26] MEDS: ACETAMINOPHEN 325 MG TABLET (FP) PO PRN (06:53)
[2019-07-26 06:55] LABS: BASO % 0.3 % (0-2.0); EOS % 1.8 % (0-4.5); HEMATOCRIT 35.7 % (32.4-45.2); HEMOGLOBIN 11.9 GM/dL (10.7-15.3); LYMPH % 46.6 % (8-40); MCH 27.2 pg (25.7-33.7); MCHC 33.3 g/dl (32.0-36.0); MEAN CELL VOLUME 81.6 fl (80-96); MEAN PLT VOLUME 8.6 fl (7.5-11.1); MONO % 5.3 % (3.8-10.2); PLATELET COUNT 189 K/MM3 (134-434); RBC 4.37 M/mm3 (3.60-5.2); RDW 14.6 % (11.6-15.6); WHITE BLOOD COUNT 5.7 K/mm3 (4.0-10.0)
[2019-07-26] MEDS ORDERED: LEVOTHYROXINE NA 88 MCG TABLET (FP) PO SCH (07:00)
[2019-07-26 07:22] LABS: ALBUMIN 3.6 g/dl (3.4-5.0); BILIRUBIN,TOTAL 0.4 mg/dL (0.2-1); BLOOD UREA NITROGEN 19.1 mg/dL (7-18); CREATININE 0.7 mg/dL (0.55-1.3); MAGNESIUM 2.1 mg/dL (1.8-2.4); PHOSPHOROUS 3.4 mg/dL (2.5-4.9); POTASSIUM 3.7 mmol/L (3.5-5.1); TOT PROT 6.6 g/dl (6.4-8.2)
[2019-07-26 08:02] LABS: INR 1.04 (0.83-1.09); PROTHROMBIN TIME (PATIENT) 12.3 SEC (9.7-13.0)
[2019-07-26 08:05] LABS: ACTIVATED PTT 35.3 SECONDS (25.2-36.5)
--- NOTE | 2019-07-26 09:08 | CONSULT ---
Consult - text type - Consultation Consultation Note: Neurology CHIEF COMPLAINT: Lightheadedness PCP: Dr Colleen Chung CT HISTORY OF PRESENT ILLNESS: The patient is a very pleasant 59-year-old female who is known to me from admission in 2016 hen she had postconcussive symptoms. Her past medical history of asthma, Palomo's thyroiditis, HTN, DJD who presented to [facility] for lightheadedness and generalized weakness. Pt endorses she was driving around 5: 30 pm day prior to admission when she suddenly became weak and lightheadedness. Pt states she had to pull worker to the side of the road as she couldn't drive any further. Also states she was experiencing some blurry vision and numbness/ tingling in her hands and lower extremities. Pt has never experienced these symptoms before in the past. Denies any recent illnesses. Furthermore, pt also states she experienced chills. She was admitted for further evaluation and completed noncontrast head CT which did not show any acute changes. Echo was also completed and normal left ventricular systolic function and ejection fraction. This morning, she reports feeling better but still with some "foginess " and also hesitant with her gait. Previously she had been recommended to have a cane and it may be of benefit to have her utilize one again. Neurologically without focal deficits and does not require further imaging. Did recommend outpatient follow-up for further cognitive evaluation and management. Allergies: Bactrim, codeine, erythromycin, levofloxacin, penicillins PMH: hashimotos thyroiditis, HTN, Asthma, DJD 'whole spine", ovarian cyst PSH: ovarian cyst and Salpingectomy Social: On disability, denies tobacco, alcohol Famhx: Dad- CAD, lymphoma. Mom- Ovarian ca Allergies sulfamethoxazole [From Bactrim] Allergy (Severe, Verified 07/24/19 20:58) Difficulty Breathing trimethoprim [From Bactrim] Allergy (Severe, Verified 07/24/19 20:58) Difficulty Breathing codeine [Codeine] Allergy (Verified 07/24/19 20:58) Vomiting erythromycin base [Erythromycin Base] Allergy (Verified 07/24/19 20:58) levofloxacin [From Levaquin] Allergy (Verified 07/24/19 20:58) REDNESS TO ARM Penicillins Allergy (Verified 07/24/19 20:58) Sulfa (Sulfonamide Antibiotics) [Sulfa(Sulfonamide Antibiotics)] Allergy ( Verified 07/24/19 20:58) REDNESS TO ARM HOME MEDICATIONS: Home Medications Medication Instructions Recorded Esomeprazole Mag Trihydrate 40 mg PO DAILY 05/27/12 [Nexium] Paroxetine HCl [Paxil -] 5 mg PO DAILY 05/27/12 Tiotropium [place] [Spiriva] 1 inh IH DAILY 05/27/12 Albuterol 0.083% Nebulizer Doris 1 neb NEB Q4H PRN 11/11/12 [Ventolin 0.083% Nebulizer Soln -] Levothyroxine [Synthroid -] 88 mcg PO DAILY 11/11/12 Potassium Chloride 10 meq PO DAILY #1 capsule.er 10/17/15 REVIEW OF SYSTEMS CONSTITUTIONAL: PRESENT generalized weakness HEENT: Absent: rhinorrhea, nasal congestion, throat pain, throat swelling, difficulty swallowing, mouth swelling, ear pain, eye pain, visual changes CARDIOVASCULAR: Absent: chest pain, syncope, palpitations, irregular heart rate, lightheadedness , peripheral edema RESPIRATORY: Absent: cough, shortness of breath, dyspnea with exertion, orthopnea, wheezing, stridor, hemoptysis GASTROINTESTINAL: Absent: abdominal pain, abdominal distension, nausea, vomiting, diarrhea, constipation, melena, hematochezia GENITOURINARY: Absent: dysuria, frequency, urgency, hesitancy, hematuria, flank pain, genital pain MUSCULOSKELETAL: Absent: myalgia, arthralgia, joint swelling, back pain, neck pain SKIN: Absent: rash, itching, pallor HEMATOLOGIC/IMMUNOLOGIC: Absent: easy bleeding, easy bruising, lymphadenopathy, frequent infections ENDOCRINE: Absent: unexplained weight gain, unexplained weight loss, heat intolerance, cold intolerance NEUROLOGIC: Absent: headache, focal weakness or paresthesias, dizziness, unsteady gait, seizure, mental status changes, bladder or bowel incontinence PSYCHIATRIC: Absent: anxiety, depression, suicidal or homicidal ideation, hallucinations. PHYSICAL EXAMINATION Vital Signs Period Temp Pulse Resp BP Sys/Oglesby Pulse Ox Last 24 Hr 97.7 F-98.3 F 55-78 17-20 110-137/50-87 98-99 GENERAL: NAD HEAD: Normal with no signs of trauma. EYES: EOMI Sclera Clear EARS, NOSE, THROAT: MMM NECK: Supple LUNGS: CTA b/l . HEART: RRR S1S2 ABDOMEN: Soft, NDNT MUSCULOSKELETAL: FROM . LOWER EXTREMITIES: No CCE NEUROLOGICAL: Cranial nerves II-XII intact, moves all extremities equally, sensory intact, finger to nose normal, gait slightly antalgic but no ataxia SKIN: Warm, dry, normal turgor, no rashes or lesions noted, normal capillary refill. Laboratory Results - last 24 hr 07/24/19 07/24/19 07/24/19 22:20 22:20 22:20 WBC 7.6 RBC 4.57 Hgb 12.4 Hct 37.2 MCV 81.4 MCH 27.1 MCHC 33.3 RDW 14.7 Plt Count 203 MPV 8.6 Absolute Neuts (auto) 5.3 Neutrophils % 69.1 D Lymphocytes % 25.5 D Monocytes % 4.5 Eosinophils % 0.3 D Basophils % 0.6 Nucleated RBC % 0 PT with INR INR PTT (Actin FS) Sodium 141 Potassium 3.3 L Chloride 102 Carbon Dioxide 30 Anion Gap 8 BUN 17.5 Creatinine 0.6 Est GFR (CKD-EPI)AfAm 115.63 Est GFR (CKD-EPI)NonAf 99.77 Random Glucose 105 Calcium 9.6 Phosphorus Magnesium Total Bilirubin 0.4 AST 16 ALT 26 Alkaline Phosphatase 97 Creatine Kinase 176 Creatine Kinase Index 1.1 CK-MB (CK-2) 2.1 Troponin I < 0.02 B-Natriuretic Peptide Total Protein 7.3 Albumin 3.8 Vitamin B12 TSH Blood Type Antibody Screen 07/24/19 07/24/19 07/24/19 22:20 22:20 22:45 WBC RBC Hgb Hct MCV MCH MCHC RDW Plt Count MPV Absolute Neuts (auto) Neutrophils % Lymphocytes % Monocytes % Eosinophils % Basophils % Nucleated RBC % PT with INR INR PTT (Actin FS) Sodium Potassium Chloride Carbon Dioxide Anion Gap BUN Creatinine Est GFR (CKD-EPI)AfAm Est GFR (CKD-EPI)NonAf Random Glucose Calcium Phosphorus 3.5 Magnesium 2.0 Total Bilirubin AST ALT Alkaline Phosphatase Creatine Kinase Creatine Kinase Index CK-MB (CK-2) Troponin I B-Natriuretic Peptide 32.8 Total Protein Albumin Vitamin B12 1312 H TSH 0.99 Blood Type O POSITIVE Antibody Screen Negative 07/24/19 07/25/19 23:35 06:35 WBC RBC Hgb Hct MCV MCH MCHC RDW Plt Count MPV Absolute Neuts (auto) Neutrophils % Lymphocytes % Monocytes % Eosinophils % Basophils % Nucleated RBC % PT with INR 11.00 INR 0.93 PTT (Actin FS) 26.1 Sodium Potassium Chloride Carbon Dioxide Anion Gap BUN Creatinine Est GFR (CKD-EPI)AfAm Est GFR (CKD-EPI)NonAf Random Glucose Calcium Phosphorus Magnesium Total Bilirubin AST ALT Alkaline Phosphatase Creatine Kinase Creatine Kinase Index CK-MB (CK-2) Troponin I B-Natriuretic Peptide Total Protein Albumin Vitamin B12 TSH Blood Type O POSITIVE Antibody Screen ASSESSMENT/PLAN: The patient is a very pleasant 59-year-old female who is known to me from admission in 2016 hen she had postconcussive symptoms. Her past medical history of asthma, Palomo's thyroiditis, HTN, DJD who presented to [facility] for lightheadedness and generalized weakness. Pt endorses she was driving around 5: 30 pm day prior to admission when she suddenly became weak and lightheadedness. Pt states she had to pull worker to the side of the road as she couldn't drive any further. Also states she was experiencing some blurry vision and numbness/ tingling in her hands and lower extremities. Pt has never experienced these symptoms before in the past. Denies any recent illnesses. Furthermore, pt also states she experienced chills. She was admitted for further evaluation and completed noncontrast head CT which did not show any acute changes. Echo was also completed and normal left ventricular systolic function and ejection fraction. This morning, she reports feeling better but still with some "foginess " and also hesitant with her gait. Previously she had been recommended to have a cane and it may be of benefit to have her utilize one again. Neurologically without focal deficits and does not require further imaging. Did recommend outpatient follow-up for further cognitive evaluation and management. follow- up cardiology recommendations and telemetry monitoring. Monitor blood pressure , maintain normotensive range. Monitor TSH, continue Synthroid. Extensive conversation about maintaining adequate hydration. Neurologically stable, discharge planning as per primary team
[2019-07-26] MEDS: HYDROCHLOROTHIAZIDE 25 MG TABLET (FP) PO SCH (10:06)
[2019-07-26] MEDS: PANTOPRAZOLE 40 MG TABLET (FP) PO SCH (10:07)
[2019-07-26] MEDS ORDERED: ACETAMINOPHEN 500 MG TABLET (FP) PO ONE (14:03)
[2019-07-26 14:58] VITALS: BP 114/61; PULSE 72; TEMP 97.7
--- NOTE | 2019-07-26 19:50 | DS ---
Physical Exam: SUBJECTIVE: Patient seen and examined at bedside. Without complaint. OBJECTIVE: Vital Signs Period Temp Pulse Resp BP Sys/Oglesby Pulse Ox Last 24 Hr 97.7 F-98.2 F 55-75 18-19 110-135/55-79 99-99 PHYSICAL EXAM GENERAL: NAD HEAD: Normal with no signs of trauma. EYES: EOMI Sclera Clear EARS, NOSE, THROAT: MMM NECK: Supple LUNGS: CTA b/l . HEART: RRR S1S2 ABDOMEN: Soft, NDNT LOWER EXTREMITIES: No CCE NEUROLOGICAL: Cranial nerves II-XII intact. SKIN: Warm, dry, normal turgor, no rashes or lesions noted, normal capillary refill. LABS Laboratory Results - last 24 hr 07/26/19 07/26/19 07/26/19 06:32 06:32 06:32 WBC 5.7 RBC 4.37 Hgb 11.9 Hct 35.7 MCV 81.6 MCH 27.2 MCHC 33.3 RDW 14.6 Plt Count 189 MPV 8.6 Absolute Neuts (auto) 2.6 Neutrophils % 46.0 D Lymphocytes % 46.6 H D Monocytes % 5.3 Eosinophils % 1.8 D Basophils % 0.3 Nucleated RBC % 0 PT with INR 12.30 INR 1.04 PTT (Actin FS) 35.3 Sodium 142 Potassium 3.7 Chloride 108 H Carbon Dioxide 29 Anion Gap 5 L BUN 19.1 H Creatinine 0.7 Est GFR (CKD-EPI)AfAm 109.91 Est GFR (CKD-EPI)NonAf 94.84 Random Glucose 97 Calcium 9.0 Phosphorus 3.4 Magnesium 2.1 Total Bilirubin 0.4 AST 18 ALT 30 Alkaline Phosphatase 85 Total Protein 6.6 Albumin 3.6 07/24/19 07/24/19 07/24/19 22:20 22:20 22:20 Total Protein 7.3 Albumin 3.8 Vitamin B12 1312 H TSH 0.99 07/26/19 06:32 Total Protein 6.6 Albumin 3.6 Vitamin B12 TSH CXR: without acute pathology CTH : without acute abnormality EKG: NSR 67bpm, qtc 477ms ECHO: ef 55-60%, trace TR HOSPITAL COURSE: Date of Admission:07/25/19 Date of Discharge: 07/26/19 59 F with PMH history of asthma, Palomo's thyroiditis, HTN, DJD who presented to [facility] earlier this morning for lightheadedness and generalized weakness while she was driving her car. #lightheadedness/Near syncope -ECHO without acute abnormality. sx resolved on discharge -CTH (-) for acute abnormality -was monitored on tele, without acute events -seen by neuro, less likely neurological. however can f/u with neuro as outpt -can follow with cardio as outpt for holter monitor -recommend further w/u as outpt; iron studies, etc. #HTN -Resume HCTZ #Palomo's thyroiditis -Synthroid 88 mcg #Asthma -Continue Singulair Minutes to complete discharge: 44 Discharge Summary Problems reviewed: Yes Reason For Visit: LIGHTHEADEDNESS Condition: Stable - Instructions Diet, Activity, Other Instructions: You were in the hospital because you felt as if you were going to pass out. While you were here, you had blood work drawn which was within normal limits. You also had a Head CT scan done which did not show abnormality. You were monitored on a cardiac floor, and underwent an ECHO (picture of your heart) which was without abnormality. In addition, your EKG was normal. You improved and are being sent home. Medications 1. You have not been started on any new medications on your discharge. Follow up appointments -Please see the following physicians on your discharge: -Dr. Lopez, your primary care doctor- this week to discuss your hospital visit -Dr. Kailyn Strong - your neurologist in a week. We have also given you a referral for the neurologist, Dr. Holman that saw you in the hospital if you would like to follow with him. -Dr. Patino, a plant engineer as an outpatient this week to determine if you need any further monitoring of your heart. He will help set you up with a holter monitor. -Dr. Lind- your brush machine setter this week If you develop chest pain or trouble breathing, or pass out, please call you doctor immediately or go to the hopital. Referrals: Dr. Diogo [Other] - 1 Week Fatimah Lopez MD [Non Staff, Medical] - 07/29/19 Quentin Holman MD [Staff Physician] - 1 Week Diogenes Patino MD [Staff Physician] - 1 Week Nica Strong MD [Non Staff, Medical] - 1 Week Disposition: HOME - Home Medications Comprehensive Discharge Medication List: Ambulatory Orders Esomeprazole Mag Trihydrate [Nexium] 40 mg PO DAILY 05/27/12 Paroxetine HCl [Paxil -] 5 mg PO DAILY 05/27/12 Tiotropium [place] [Spiriva] 1 inh IH DAILY 05/27/12 Albuterol 0.083% Nebulizer Doris [Ventolin 0.083% Nebulizer Soln -] 1 neb NEB Q4H PRN 11/11/12 Levothyroxine [Synthroid -] 88 mcg PO DAILY 11/11/12 Potassium Chloride 10 meq PO DAILY #1 capsule.er 10/17/15 Famotidine [Pepcid] 20 mg PO BID 07/25/19 Hydrochlorothiazide [Hctz -] 25 mg PO DAILY 07/25/19 Montelukast Sodium [Singulair] 10 mg PO DAILY 07/25/19 Simvastatin [Zocor] 20 mg PO DAILY 07/25/19 Acetaminophen [Tylenol .Regular Strength -] 650 mg PO Q6H PRN tablet 07/26/19 This patient is new to me today: Yes Date on this admission: 07/26/19 Emergency Visit: No Critical Care patient: No - Discharge Referral Referred to [facility] No ATTENDING PHYSICIAN STATEMENT I saw and evaluated the patient. I reviewed the resident's note and discussed the case with the resident. I agree with the resident's findings and plan as documented. SUBJECTIVE: OBJECTIVE: ASSESSMENT AND PLAN:
[2019-07-26] MEDS ORDERED: MONTELUKAST NA 10 MG TABLET PO SCH (22:00)
== END 2019-07-26 15:00 | disposition home or self-care (01) ==
LOC: JER 20:22 → JERBED 07-25 01:38 → J4W 07-25 18:42
PROVIDERS: ADMIT Internal Medicine; ATTEND Internal Medicine
PROC: 3E0F7GC Introduction of Other Therapeutic Substance into Respiratory Tract, Via Natural or Artificial Opening (ICD-10-PCS; principal; 2019-07-25)
PROC: 3E0337Z Introduction of Electrolytic and Water Balance Substance into Peripheral Vein, Percutaneous Approach (ICD-10-PCS; 2019-07-25)
DX: R42 Dizziness and giddiness (principal); R55 Syncope and collapse; I10 Essential (primary) hypertension; E06.3 Autoimmune thyroiditis; J45.909 Unspecified asthma, uncomplicated; E11.9 Type 2 diabetes mellitus without complications; M47.899 Other spondylosis, site unspecified; Z90.79 Acquired absence of other genital organ(s); Z88.0 Allergy status to penicillin; Z88.2 Allergy status to sulfonamides; Z88.1 Allergy status to other antibiotic agents; Z88.5 Allergy status to narcotic agent
CPT/HCPCS: 36415; 70450-TC; 71045-TC-FY; 80053; 82550; 82553; 82607; 83735; 83880; 84100; 84443; 84484; 85025; 85610; 85730; 86850; 86900; 86901; 93005; 93010; 93306-TC; 94640; 96360; 97116-GP; 97161-GP; 99285-25; G0378; J7030

== ENCOUNTER 2020-11-27 15:46 | Emergency (ER) | payer OTHER, MEDICARE ==
[2020-11-27 16:04] VITALS: BP 115/78; PULSE 79; TEMP 97.8; BMI 29.7
[2020-11-27 18:24] LABS: BASO % 0.5 % (0-2.0); EOS % 1.4 % (0-4.5); HEMATOCRIT 35.5 % (32.4-45.2); HEMOGLOBIN 11.9 GM/dL (10.7-15.3); LYMPH % 31.1 % (8-40); MCH 27.2 pg (25.7-33.7); MCHC 33.5 g/dl (32.0-36.0); MEAN CELL VOLUME 81.2 fl (80-96); MEAN PLT VOLUME 8.9 fl (7.5-11.1); MONO % 6.5 % (3.8-10.2); NEUT % 60.5 % (42.8-82.8); PLATELET COUNT 214 K/MM3 (134-434); RBC 4.37 M/mm3 (3.60-5.2); RDW 14.4 % (11.6-15.6); WHITE BLOOD COUNT 6.5 K/mm3 (4.0-10.0)
[2020-11-27 19:13] LABS: PH,URINE 7.5 (5.0-8.0); URINE APPEARANCE CLEAR; URINE BILIRUBIN NEGATIVE (NEGATIVE); URINE COLOR YELLOW; URINE GLUCOSE (UA) NEGATIVE (NEGATIVE); URINE KETONE NEGATIVE (NEGATIVE); URINE LEUK ESTERASE NEGATIVE (NEGATIVE); URINE NITRITE NEGATIVE (NEGATIVE); URINE PROTEIN NEGATIVE (NEGATIVE)
[2020-11-27 19:31] LABS: CHLORIDE 101 mmol/L (98-107); POTASSIUM 3.5 mmol/L (3.5-5.1); SODIUM 139 mmol/L (136-145)
[2020-11-27 19:36] LABS: CALCIUM 9.8 mg/dL (8.5-10.1)
[2020-11-27 19:37] LABS: ALBUMIN 3.7 g/dl (3.4-5.0); ANION GAP 6 MMOL/L (8-16); BLOOD UREA NITROGEN 19.7 mg/dL (7-18); CO2 31 mmol/L (21-32); GLUCOSE,RANDOM 103 mg/dL (74-106)
[2020-11-27 19:40] LABS: CREATININE 0.7 mg/dL (0.55-1.3); SGOT/AST 20 U/L (15-37); SGPT/ALT 25 U/L (13-61)
[2020-11-27 19:41] LABS: BILIRUBIN,TOTAL 0.6 mg/dL (0.2-1); TOT PROT 7.4 g/dl (6.4-8.2)
[2020-11-27 19:43] LABS: ALK PHOS 93 U/L (45-117)
== END 2020-11-27 19:55 | disposition home or self-care (01) ==
LOC: JER 15:46
PROC: 3E033NZ Introduction of Analgesics, Hypnotics, Sedatives into Peripheral Vein, Percutaneous Approach (ICD-10-PCS; principal; 2020-11-27)
DX: R06.02 Shortness of breath (principal); L29.9 Pruritus, unspecified
CPT/HCPCS: 36415; 71046-TC-FY; 80053; 81003; 82550; 83880; 84484; 85025; 93005; 93010; 99285-25; C9803; U0003; U0005

== ENCOUNTER 2022-08-19 17:10 | Emergency (ER) | payer OTHER, MEDICARE ==
[2022-08-19 17:23] VITALS: BP 150/70; PULSE 70; RESP 18; TEMP 98; BMI 30.4
[2022-08-19] MEDS ORDERED: ACETAMINOPHEN 1000 MG/100 ML BAG IVPB ONE (18:18)
[2022-08-19] MEDS ORDERED: METOCLOPRAMIDE HCL INJECTION 10 MG/2 ML VIAL IVPUSH ONE (18:18)
[2022-08-19] MEDS ORDERED: MAG HYDROX/AL HYDROX/SIMETH -MYLANTA- ORAL SUSPENSION PO ONE (18:18)
[2022-08-19] MEDS ORDERED: METOCLOPRAMIDE HCL INJECTION 10 MG/2 ML VIAL ONE (19:43)
[2022-08-19] MEDS ORDERED: ACETAMINOPHEN INJECTION 100 ML IVPB ONE (19:44)
[2022-08-19] MEDS ORDERED: MAG HYDROX/AL HYDROX/SIMETH 30 ML UNIT-DOSE CUP ONE (19:44)
[2022-08-19] MEDS ORDERED: diphenhydrAMINE HCL 25 MG CAPSULE (FP) PO ONE ×2 (20:31→20:40)
[2022-08-19 21:01] LABS: BASO % 0.6 % (0-2.0); EOS % 0.7 % (0-4.5); HEMATOCRIT 39.9 % (32.4-45.2); HEMOGLOBIN 12.9 GM/dL (10.7-15.3); LYMPH % 29.4 % (8-40); MCH 26.4 pg (25.7-33.7); MCHC 32.4 g/dl (32.0-36.0); MEAN CELL VOLUME 81.5 fl (80-96); MEAN PLT VOLUME 8.8 fl (7.5-11.1); MONO % 4.9 % (3.8-10.2); NEUT % 64.4 % (42.8-82.8); PLATELET COUNT 237 10^3/uL (134-434); RDW 14.8 % (11.6-15.6); WHITE BLOOD COUNT 6.8 K/mm3 (4.0-10.0)
[2022-08-19 21:18] LABS: CALCIUM 9.4 mg/dL (8.5-10.1)
[2022-08-19 21:19] LABS: ALBUMIN 3.7 g/dl (3.4-5.0); BLOOD UREA NITROGEN 19.9 mg/dL (7-18)
[2022-08-19 21:22] LABS: CREATININE 0.7 mg/dL (0.55-1.3)
[2022-08-19 21:23] LABS: BILIRUBIN,TOTAL 0.4 mg/dL (0.2-1); TOT PROT 7.6 g/dl (6.4-8.2)
[2022-08-19 21:31] LABS: INR 1.07 (0.83-1.09); PROTHROMBIN TIME (PATIENT) 12.3 SEC (9.7-13.0)
[2022-08-19 23:37] LABS: CALCIUM 9.5 mg/dL (8.5-10.1)
[2022-08-19 23:38] LABS: BLOOD UREA NITROGEN 18.4 mg/dL (7-18)
[2022-08-19 23:41] LABS: CREATININE 0.6 mg/dL (0.55-1.3)
== END 2022-08-20 00:25 | disposition home or self-care (01) ==
LOC: JER 17:10
PROC: 3E033GC Introduction of Other Therapeutic Substance into Peripheral Vein, Percutaneous Approach (ICD-10-PCS; principal; 2022-08-19)
DX: R42 Dizziness and giddiness (principal); R10.13 Epigastric pain; R51.9 Headache, unspecified
CPT/HCPCS: 0241U-QW; 36415; 71046-TC-FY; 80048; 80053; 84484; 85025; 85610; 93005; 93010; 99285-25